=== PATIENT | female | born 1970 | race Hispanic/Latino ===

== ENCOUNTER → 2018-04-26 | Outpatient (CLI) | payer OTHER ==
[~2018-04-26] MED LIST: GADOBENATE DIMEGLUMINE 1 ML IV ONE
[2018-04-26 11:12] LABS: BLOOD UREA NITROGEN 13 mg/dL (7-26); BUN/CREATININE RATIO 16 (6-25); CREATININE, SERUM 0.81 mg/dL (0.57-1.11); EST GLOMERULAR FILTRATION RATE > 60 ML/MIN (60-)
--- NOTE | 2018-04-28 08:35 | Diagnostic Imaging Report ---
MRI abdomen CPT code: 41834 Indication: Anemia/adenoma of liver Technique: Axial T1 nonfat sat in and out of phase, axial T2 fat sat, coronal T2 nonfat sat, axial DWI and ADC MR images of the abdomen were obtained before and after the administration of 18 cc of gadolinium. Axial T1 fat sat GRE dynamic images in precontrast, arterial, venous and delayed phases were obtained. Comparison: None Findings: The majority of the post sequences are motion degraded, including the post gadolinium sequences. Liver: The right lobe measures 21 cm in craniocaudal dimension. There is moderate steatosis. The fat-suppressed T2-weighted sequence demonstrates geographic linear bands of increased T2 signal throughout the right lobe. There is suggestion of a well-defined solid mass in segment 5 abutting the capsule at the gallbladder fossa measuring 13 by 16 mm (series 6, image 28). This is not confirmed on other pulse sequences, however. A subcapsular high T2, low T1 signal lesion in segment 4 measures 1.0 x 0.8 cm. This demonstrates enhancement on post gadolinium sequences without evidence of washout. Gallbladder: Present. No evidence of gallstone or focal mural thickening. Biliary tree: No intrahepatic or extrahepatic biliary ductal dilatation. Pancreas: Normal T1 and T2 signal without mass or ductal dilatation Spleen: Normal size and signal. No mass Adrenal glands: No mass Kidneys: No hydronephrosis. A high T2, low T1 signal unilocular lower pole cyst in the right kidney measures 2.6 cm. No enhancing lesions in either kidney. Lymph nodes: No enlarged abdominal or retroperitoneal lymph nodes. Bowel: The stomach and visualized portions of the small and large bowel are normal in diameter with normal wall thickness. Pelvis: Visualized pelvic structures are unremarkable. No free fluid or fluid collection. Lung bases: Unremarkable. Bones: Normal marrow signal. No focal osseous lesions. IMPRESSION: 1. Compromised examination due to motion artifact. A subcapsular lesion measuring 10 mm in segment 4 may represent a shunt or hemangioma. A lesion adjacent to the gallbladder may or may not be real. Dynamic contrast-enhanced CT dedicated to the liver is recommended for further characterization. 2. Moderate steatosis and hepatomegaly. Linear high T2 signal bands in the right lobe are suggestive of developing cirrhosis, likely secondary to ABRAHAM. Signed by: Dr. Leo Madden MD on 04/28/2018 8:32 AM
== END ==
LOC: MRI 09:52
PROVIDERS: ATTEND Internal Medicine Gastroenterology
DX: D50.0 Iron deficiency anemia secondary to blood loss (chronic) (principal); D13.4 Benign neoplasm of liver; I10 Essential (primary) hypertension; E11.9 Type 2 diabetes mellitus without complications; E66.9 Obesity, unspecified; Z71.3 Dietary counseling and surveillance
CPT/HCPCS: 36415; 74183; 82565; 84520; A9577

== ENCOUNTER → 2019-05-17 | Outpatient (CLI) | payer OTHER ==
[~2019-05-17] MED LIST changes: -GADOBENATE DIMEGLUMINE 1 ML IV ONE; +IOPAMIDOL 370 MG/ML 200 ML INFUS..BTL INJ ONE; +SODIUM CHLORIDE 0.9% 50ML 50 ML ONE
[2019-05-17 13:50] LABS: CREATININE, SERUM 1.07 mg/dL (0.57-1.11)
--- NOTE | 2019-05-18 09:25 | Diagnostic Imaging Report ---
CT of the abdomen, with contrast, 05/17/2019. History: Anemia, liver lesion. Comparison: MRI abdomen 04/26/2018. Technique: Multidetector CT scanning of the abdomen was performed from the level of the lung bases to the iliac crests after intravenous administration of contrast. Scans were obtained during early and delayed phases. Coronal and sagittal multiplanar reformations were obtained. RADIATION DOSE: Total DLP: 866 mGy*cm Dose modulation, iterative reconstruction, and/or weight based adjustment of the mA/kV was utilized to reduce the radiation dose to as low as reasonably achievable. Discussion: LUNG BASES: Small peripheral soft tissue is noted along the left lower lobe. Lungs are clear. ABDOMEN: The liver is enlarged measuring over 20 cm in length. A 3.6 x 3.2 cm heterogeneously enhancing lesion is present in the segment 5 of the liver adjacent to the gallbladder, containing central hypodensity. On delayed phase, the majority of the lesion is isodense to liver with central hypodensity remaining. Remainder of the liver has a diffusely heterogeneous appearance on both early and delayed phases without visible focal lesion. 3 round hypervascular lesions are present within the pancreatic body and tail ranging from 5 to 7 mm in diameter, seen only on the arterial phase. Remainder of pancreas is normal without evidence of cystic lesion or adjacent inflammation. There is no pancreatic ductal dilatation. Retrospectively, these are visible on the prior MRI and are unchanged. A 3 cm cyst is present in the lower pole of the right kidney. The gallbladder, biliary tree, spleen, adrenal glands, and left kidney are normal. The hepatic vein, portal vein, and splenic vein are patent. Portal vein is mildly prominent measuring 15 mm in diameter. The abdominal aorta is within normal limits for size. Evaluation of bowel is limited without oral contrast. Visualized bowel is unremarkable without evidence of dilatation. There is no evidence of adenopathy or free fluid. BONES AND SOFT TISSUES: Degenerative changes are present within the lumbar spine without evidence of lytic or sclerotic lesion. IMPRESSION: 1. Hepatomegaly with diffuse liver heterogeneity and increase in size of segment 5 lesion, which appears to have a central scar suggestive of FNH, but HCC cannot be excluded. Portal vein dilatation is suggestive of portal venous hypertension. Recommend MRI. 2. Subcentimeter pancreatic hypervascular lesions seen only on the arterial phase, indeterminate, but unchanged since prior MRI. No cystic pancreatic lesions. Signed by: Ellis Marie on 05/18/2019 9:20 AM
== END ==
LOC: CT 12:51
PROVIDERS: ATTEND Internal Medicine Gastroenterology
DX: D50.0 Iron deficiency anemia secondary to blood loss (chronic) (principal); K86.2 Cyst of pancreas; A04.8 Other specified bacterial intestinal infections; Z71.3 Dietary counseling and surveillance; I10 Essential (primary) hypertension; E11.9 Type 2 diabetes mellitus without complications; E66.9 Obesity, unspecified; F17.200 Nicotine dependence, unspecified, uncomplicated
CPT/HCPCS: 36415; 74160; 82565; 84520; Q9967

== ENCOUNTER → 2020-05-30 | Outpatient (CLI) | payer OTHER | LOC: US 09:57 | PROVIDERS: ATTEND Internal Medicine Gastroenterology | DX: D50.0 Iron deficiency anemia secondary to blood loss (chronic) (principal); K76.0 Fatty (change of) liver, not elsewhere classified; E11.9 Type 2 diabetes mellitus without complications; I10 Essential (primary) hypertension; Z71.3 Dietary counseling and surveillance; E66.9 Obesity, unspecified | CPT/HCPCS: 76700 ==

== ENCOUNTER → 2020-07-05 | Day surgery (SDC) | payer OTHER ==
[~2020-07-05] MED LIST changes: +AMBIEN10 MG PO; +AMITIZA24 MCG PO; +ATORVASTATIN CA20 MG PO; +BUPROPION HCL75 MG PO; -IOPAMIDOL 370 MG/ML 200 ML INFUS..BTL INJ ONE; +LEVOTHYROXINE50 MCG PO; +LISINOPRIL10 MG PO; +METFORMIN HCL500 MG PO; +ONDANSETRON HCL INJ 2MG/ML 2ML 2 MG/ML VIAL ONE; -SODIUM CHLORIDE 0.9% 50ML 50 ML ONE; +ULTRAM50 MG PO
[2020-07-05 08:00] VITALS: BP 121/83
== END | disposition home or self-care (01) ==
LOC: OR 05:29
PROVIDERS: ATTEND Internal Medicine Gastroenterology
DX: D50.0 Iron deficiency anemia secondary to blood loss (chronic) (principal); K29.50 Unspecified chronic gastritis without bleeding; K44.9 Diaphragmatic hernia without obstruction or gangrene; K31.89 Other diseases of stomach and duodenum; K21.9 Gastro-esophageal reflux disease without esophagitis; Z71.3 Dietary counseling and surveillance; K76.0 Fatty (change of) liver, not elsewhere classified; E11.9 Type 2 diabetes mellitus without complications; I10 Essential (primary) hypertension; E66.9 Obesity, unspecified; E78.5 Hyperlipidemia, unspecified; E03.9 Hypothyroidism, unspecified; M06.9 Rheumatoid arthritis, unspecified; F17.200 Nicotine dependence, unspecified, uncomplicated; Z01.810 Encounter for preprocedural cardiovascular examination; Z01.812 Encounter for preprocedural laboratory examination; Z20.822 Contact with and (suspected) exposure to COVID-19; Z79.84 Long term (current) use of oral hypoglycemic drugs; Z68.32 Body mass index [BMI] 32.0-32.9, adult
CPT/HCPCS: 36415; 43235; 81025; 82948; 93005; J2405; U0002

== ENCOUNTER → 2020-08-17 | Outpatient (CLI) | payer OTHER ==
[~2020-08-17] MED LIST changes: -ONDANSETRON HCL INJ 2MG/ML 2ML 2 MG/ML VIAL ONE
== END ==
LOC: NM 09:24
PROVIDERS: ATTEND Internal Medicine Gastroenterology
DX: D50.0 Iron deficiency anemia secondary to blood loss (chronic) (principal); K31.84 Gastroparesis; E66.9 Obesity, unspecified; E11.9 Type 2 diabetes mellitus without complications; I10 Essential (primary) hypertension; Z71.3 Dietary counseling and surveillance
CPT/HCPCS: 78264; A9541

== ENCOUNTER 2023-11-27 19:07 | Emergency (ER) | payer OTHER ==
[~2023-11-27] VITALS: Ht 157.5 cm; Wt 86.3 kg
[~2023-11-27 19:07] MED LIST changes: +CIPRO500 MG PO; +FERROUS SU220 MG/51; +GABAPENTIN600 MG; +ORPHENADRINE C100 MG PO; +PLAQUENIL200 MG PO; +TIZANIDINE HCL4 MG PO; +VITAMIN D
[2023-11-27 19:57] LABS: BASOPHILS # (AUTO) 0.1 (0.0-0.1); BASOPHILS % 0.4 % (0.0-1.0); EOSINOPHILS # (AUTO) 0.2 (0.0-0.4); EOSINOPHILS % 1.4 % (0.0-6.0); HEMATOCRIT 25.2 % (34.2-44.1); HEMOGLOBIN 7.2 g/dL (12.0-16.0); LYMPHOCYTES # (AUTO) 2.3 (1.0-3.2); LYMPHOCYTES % 16.4 % (18.0-39.1); MEAN CORPUSCULAR HEMOGLOBIN 19.1 pg (28-32); MEAN CORPUSCULAR HGB CONC 28.6 g/dL (31-35); MEAN CORPUSCULAR VOLUME 66.8 fL (81-99); MONOCYTES # (AUTO) 0.8 (0.2-0.8); MONOCYTES % 5.6 % (4.4-11.3); NEUTROPHILS # (AUTO) 10.8 (2.1-6.9); NEUTROPHILS % 75.6 % (38.7-80.0); PLATELET COUNT 657 x10e3/uL (140-360); RED BLOOD COUNT 3.77 x10e6/uL (3.6-5.1); RED CELL DISTRIBUTION WIDTH 19.5 % (11.7-14.4); WHITE BLOOD COUNT 14.23 x10e3/uL (4.8-10.8)
[2023-11-27 20:08] LABS: INR 0.98; PARTIAL THROMBOPLASTIN TIME 24.8 seconds (23.8-35.5); PROTHROMBIN TIME 13.7 seconds (11.9-14.5)
[2023-11-27 20:15] LABS: ALBUMIN 3.8 g/dL (3.5-5.0); ALBUMIN/GLOBULIN RATIO 1.1 (0.8-2.0); ANION GAP 15.2 mmol/L (8-16); BILIRUBIN,TOTAL 0.4 mg/dL (0.2-1.2); CALCIUM 9.1 mg/dL (8.4-10.2); CREATININE, SERUM 1.56 mg/dL (0.57-1.11); POTASSIUM 4.2 mmol/L (3.5-5.1); TOTAL PROTEIN 7.2 g/dL (6.5-8.1)
[2023-11-27] MEDS: SODIUM CHLORIDE 0.9% 1000ML 1,000 ML IV ONE (20:37)
[2023-11-27] MEDS: INSULIN REGULAR, HUMAN 100 UNIT/1 ML SQ ONE (20:40)
[2023-11-27 23:15] VITALS: PULSE 79; RESP 16; TEMP 98.3; O2SAT 100
== END 2023-11-27 23:25 | disposition home or self-care (01) ==
LOC: ER 19:15
DX: E11.65 Type 2 diabetes mellitus with hyperglycemia (principal); D64.9 Anemia, unspecified; R11.0 Nausea; I10 Essential (primary) hypertension; I78.0 Hereditary hemorrhagic telangiectasia; M19.09 Primary osteoarthritis, other specified site
CPT/HCPCS: 36415; 80053; 82948; 85025; 85610; 85730; 86850; 86900; 99283; J7030

== ENCOUNTER → 2024-01-16 | Day surgery (SDC) | payer OTHER ==
[2024-01-08 15:50] LABS: BASOPHILS # (AUTO) 0.1 (0.0-0.1); BASOPHILS % 1.2 % (0.0-1.0); EOSINOPHILS # (AUTO) 0.2 (0.0-0.4); EOSINOPHILS % 1.6 % (0.0-6.0); HEMOGLOBIN 6.1 g/dL (12.0-16.0); LYMPHOCYTES % 21.1 % (18.0-39.1); MEAN CORPUSCULAR HEMOGLOBIN 18.5 pg (28-32); MEAN CORPUSCULAR HGB CONC 27.9 g/dL (31-35); MEAN CORPUSCULAR VOLUME 66.6 fL (81-99); MONOCYTES # (AUTO) 0.5 (0.2-0.8); MONOCYTES % 5.2 % (4.4-11.3); NEUTROPHILS # (AUTO) 6.6 (2.1-6.9); NEUTROPHILS % 70.6 % (38.7-80.0); PLATELET COUNT 375 x10e3/uL (140-360); RED BLOOD COUNT 3.29 x10e6/uL (3.6-5.1); WHITE BLOOD COUNT 9.29 x10e3/uL (4.8-10.8)
[2024-01-08 15:58] LABS: HEMATOCRIT 21.9 % (34.2-44.1)
[2024-01-08 16:03] LABS: INR 1.02; PROTHROMBIN TIME 13.9 seconds (11.9-14.5)
[2024-01-08 16:04] LABS: PARTIAL THROMBOPLASTIN TIME 27.2 seconds (23.8-35.5)
[2024-01-08 16:09] LABS: ANION GAP 14.9 mmol/L (8-16); CALCIUM 9.4 mg/dL (8.4-10.2); CREATININE, SERUM 1.51 mg/dL (0.57-1.11); POTASSIUM 3.9 mmol/L (3.5-5.1)
[~2024-01-16] MED LIST changes: +FENTANYL CITRATE/PF 100MCG/2 ML INJ ONE; +GLUCAGON FOR INJ 1 MG VIAL ONE; +HYDROCODONE; +HYOSCYAMINE SULFATE 0.5 MG/ML INJ ONE; +LIDOCAINE HCL 2% LOCAL INJ 5 ML SDV VIAL INJ ONE; +NOVOLOG100 UNIT/1 SC; +PROPOFOL IV EMULSION 10 MG/ML 50 ML VIAL IV ONE; +TRESIBA FL100 UNIT/1 SQ; +[UNRECOGNIZED DRUG - SUPPLY]
[2024-01-16] MEDS: LACTATED RINGER'S 1,000 ML ONE (14:27)
[2024-01-16 14:38] LABS: BASOPHILS # (AUTO) 0.2 (0.0-0.1); BASOPHILS % 1.6 % (0.0-1.0); EOSINOPHILS # (AUTO) 0.2 (0.0-0.4); EOSINOPHILS % 2.2 % (0.0-6.0); HEMATOCRIT 35.7 % (34.2-44.1); HEMOGLOBIN 10.2 g/dL (12.0-16.0); LYMPHOCYTES # (AUTO) 1.9 (1.0-3.2); LYMPHOCYTES % 19.3 % (18.0-39.1); MEAN CORPUSCULAR HGB CONC 28.6 g/dL (31-35); MEAN CORPUSCULAR VOLUME 73.5 fL (81-99); MONOCYTES # (AUTO) 0.5 (0.2-0.8); MONOCYTES % 5.3 % (4.4-11.3); NEUTROPHILS # (AUTO) 7.1 (2.1-6.9); NEUTROPHILS % 71.2 % (38.7-80.0); PLATELET COUNT 476 x10e3/uL (140-360); RED BLOOD COUNT 4.86 x10e6/uL (3.6-5.1); RED CELL DISTRIBUTION WIDTH 25.7 % (11.7-14.4); WHITE BLOOD COUNT 9.99 x10e3/uL (4.8-10.8)
[2024-01-16 15:47] VITALS: TEMP 97.4
[2024-01-16 16:10] VITALS: BP 130/88; PULSE 78; RESP 18; O2SAT 98
== END | disposition home or self-care (01) ==
LOC: OR 01:40
PROVIDERS: ATTEND Internal Medicine Gastroenterology
DX: K29.50 Unspecified chronic gastritis without bleeding (principal); B96.81 Helicobacter pylori [H. pylori] as the cause of diseases classified elsewhere; D12.2 Benign neoplasm of ascending colon; D12.8 Benign neoplasm of rectum; K62.89 Other specified diseases of anus and rectum; K31.819 Angiodysplasia of stomach and duodenum without bleeding; K31.1 Adult hypertrophic pyloric stenosis; K21.9 Gastro-esophageal reflux disease without esophagitis; K20.90 Esophagitis, unspecified without bleeding; K59.00 Constipation, unspecified; K57.30 Diverticulosis of large intestine without perforation or abscess without bleeding; K64.8 Other hemorrhoids; D64.9 Anemia, unspecified; E10.9 Type 1 diabetes mellitus without complications; I10 Essential (primary) hypertension; E03.9 Hypothyroidism, unspecified; E66.9 Obesity, unspecified; F17.210 Nicotine dependence, cigarettes, uncomplicated; Z01.812 Encounter for preprocedural laboratory examination; Z79.4 Long term (current) use of insulin; Z79.899 Other long term (current) drug therapy; Z68.35 Body mass index [BMI] 35.0-35.9, adult
CPT/HCPCS: 36415 ×2; 43239; 43270; 45380; 45385; 80048; 81025; 82948; 85025 ×2; 85610; 85730; J1610; J1980; J2001; J2470; J2704; J3010; J7121; 45378

== ENCOUNTER 2024-05-31 10:15 | Inpatient (IN) | payer OTHER ==
[2024-05-30 12:16] LABS: BASOPHILS # (AUTO) 0.1 (0.0-0.1); BASOPHILS % 1.8 % (0.0-1.0); EOSINOPHILS # (AUTO) 0.4 (0.0-0.4); EOSINOPHILS % 4.8 % (0.0-6.0); HEMATOCRIT 40.1 % (34.2-44.1); HEMOGLOBIN 11.7 g/dL (12.0-16.0); LYMPHOCYTES # (AUTO) 3.4 (1.0-3.2); LYMPHOCYTES % 42.8 % (18.0-39.1); MEAN CORPUSCULAR HEMOGLOBIN 26.5 pg (28-32); MEAN CORPUSCULAR HGB CONC 29.2 g/dL (31-35); MEAN CORPUSCULAR VOLUME 90.9 fL (81-99); MONOCYTES # (AUTO) 0.5 (0.2-0.8); MONOCYTES % 6.5 % (4.4-11.3); NEUTROPHILS # (AUTO) 3.5 (2.1-6.9); PLATELET COUNT 305 x10e3/uL (140-360); RED BLOOD COUNT 4.41 x10e6/uL (3.6-5.1); RED CELL DISTRIBUTION WIDTH 18.4 % (11.7-14.4); WHITE BLOOD COUNT 7.97 x10e3/uL (4.8-10.8)
[2024-05-30 12:52] LABS: ANION GAP 16.8 mmol/L (8-16); CALCIUM 9.8 mg/dL (8.4-10.2); CREATININE, SERUM 1.19 mg/dL (0.57-1.11); POTASSIUM 3.8 mmol/L (3.5-5.1)
[~2024-05-31] VITALS: Ht 157.5 cm; Wt 87.8 kg
[~2024-05-31 10:15] MED LIST changes: -FENTANYL CITRATE/PF 100MCG/2 ML INJ ONE; +FOLIC ACID0.4 MG PO; -GLUCAGON FOR INJ 1 MG VIAL ONE; -HYOSCYAMINE SULFATE 0.5 MG/ML INJ ONE; -LIDOCAINE HCL 2% LOCAL INJ 5 ML SDV VIAL INJ ONE; +LISINOPRIL20 MG PO; +LYRICA75 MG PO; +MOUNJARO5 MG/0.5 M SQ; +OMEPRAZOLE40 MG PO; -PROPOFOL IV EMULSION 10 MG/ML 50 ML VIAL IV ONE; +SUCRALFATE1 GM PO; +TRANEXAMIC ACID 1,000 MG in SODIUM CHLORIDE 0.9% 100 ML IV PRN; +TRICOR145 MG PO; +TYLENOL #3 PO; -VITAMIN D; +VITAMIN D PO; +VITAMIN D31250 MCG
[2024-05-31] MEDS ORDERED: ROCURONIUM BROMIDE 1 ML IV ONE (10:16)
[2024-05-31] MEDS ORDERED: ONDANSETRON HCL INJ 2MG/ML 2ML 2 MG/ML VIAL ONE (10:16)
[2024-05-31] MEDS ORDERED: LIDOCAINE HCL 2% LOCAL INJ 5 ML SDV VIAL INJ ONE (10:16)
[2024-05-31] MEDS ORDERED: GLYCOPYRROLATE INJ 0.2 MG/ML VIAL ONE ×2 (10:16→14:04)
[2024-05-31] MEDS ORDERED: PROPOFOL IV EMULSION 10 MG/ML 20 ML VIAL ONE ×2 (10:16→11:36)
[2024-05-31] MEDS ORDERED: NEOSTIGMINE 1 MG/ML 10ML VIAL ONE ×2 (10:16→14:04)
[2024-05-31] MEDS ORDERED: FENTANYL CITRATE/PF 100MCG/2 ML INJ ONE (10:20)
[2024-05-31] MEDS ORDERED: MIDAZOLAM HCL 2 MG/2 ML VIAL ONE (11:36)
[2024-05-31] MEDS ORDERED: METHOCARBAMOL 500 MG TAB ONE (11:56)
[2024-05-31] MEDS ORDERED: METOCLOPRAMIDE HCL 10 MG/2ML VIAL ONE (12:56)
[2024-05-31] MEDS: FENTANYL CITRATE/PF 100MCG/2 ML INJ IV ONE ×2 (14:38→14:45)
[2024-05-31] MEDS: ACETAMINOPHEN 1000 MG/100 ML IV ONE (15:05)
[2024-05-31] MEDS: HYDROMORPHONE 1MG/1ML INJ IV ONE (15:10)
[2024-05-31 15:52] VITALS: BP 144/72; PULSE 74; RESP 18; TEMP 97.3; O2SAT 99
[2024-05-31 16:22] VITALS: BP 144/72; PULSE 74; RESP 18; TEMP 97.3; O2SAT 99
[2024-05-31 16:30] VITALS: BP 144/72; PULSE 74; RESP 18; TEMP 97.3; O2SAT 99
[2024-05-31] MEDS: LACTATED RINGER'S 1,000 ML ONE (17:14)
[2024-05-31] MEDS: CEFAZOLIN SODIUM 2 GM ONE (17:14)
[2024-05-31] MEDS: DEXTROSE 5% 250ML 250 ML IV ONE (17:15)
[2024-05-31] MEDS: FENTANYL CITRATE/PF 100MCG/2 ML INJ ONE (17:16)
[2024-05-31] MEDS: ACETAMINOPHEN 325 MG TAB ONE (17:16)
[2024-05-31] MEDS: ACETAMINOPHEN 1000 MG/100 ML 100 ML IV ONE (17:16)
[2024-05-31] MEDS: CELECOXIB 200 MG CAP ONE (17:16)
[2024-05-31] MEDS: HYDROMORPHONE 1MG/1ML INJ ONE (17:17)
[2024-05-31] MEDS: HYDROCODONE/APAP 7.5MG-325MG 1 EA TAB PO PRN (19:05)
[2024-05-31 20:00] VITALS: BP 133/97; PULSE 89; RESP 18; TEMP 97.9; O2SAT 100
[2024-05-31 21:00] VITALS: BP 133/97; PULSE 89; RESP 18; TEMP 97.9; O2SAT 100
[2024-05-31] MEDS: KETOROLAC TROMETHAMINE 30 MG/ML VIAL IV PRN (21:52)
[2024-05-31] MEDS: ASPIRIN 81 MG CHEW TAB PO SCH (23:37)
[2024-06-01] VITALS (8 sets, daily range): BP systolic 119–155; BP diastolic 76–87; PULSE 67–101; RESP 18–20; TEMP 98–98.2; O2SAT 98–100
[2024-06-01] MEDS ORDERED: DEXTROSE 50% SYRINGE 50 ML IV PRN ×2
[2024-06-01] MEDS ORDERED: LIDOCAINE 4% PATCH TP PRN
[2024-06-01] MEDS ORDERED: ACETAMINOPHEN 325 MG TAB PO PRN
[2024-06-01] MEDS ORDERED: DOCUSATE SODIUM 100 MG CAP PO PRN
[2024-06-01] MEDS ORDERED: ALBUTEROL/IPRATROPIUM 3 ML NEB NEB PRN
[2024-06-01] MEDS ORDERED: SIMETHICONE 80 MG CHEW PO PRN
[2024-06-01] MEDS ORDERED: ONDANSETRON HCL INJ 2MG/ML 2ML 2 MG/ML VIAL IV PRN
[2024-06-01] MEDS ORDERED: POTASSIUM CHLORIDE 20 MEQ TAB CR PO PRN
[2024-06-01] MEDS ORDERED: HYDRALAZINE HCL 20 MG/ML VIAL IV PRN
[2024-06-01] MEDS ORDERED: BUPROPION XL150 MG PO (00:47)
[2024-06-01] MEDS: PREGABALIN 75 MG CAP PO SCH (01:00)
[2024-06-01] MEDS: DIPHENHYDRAMINE HCL 25 MG CAP PO PRN (01:00)
[2024-06-01 05:48] LABS: HEMATOCRIT 25.2 % (34.2-44.1); HEMOGLOBIN 8.1 g/dL (12.0-16.0)
[2024-06-01 06:21] LABS: ALBUMIN 3.5 g/dL (3.5-5.0); ALBUMIN/GLOBULIN RATIO 1.3 (0.8-2.0); ANION GAP 14.9 mmol/L (8-16); BILIRUBIN,TOTAL 0.3 mg/dL (0.2-1.2); CALCIUM 8.9 mg/dL (8.4-10.2); CREATININE, SERUM 1.35 mg/dL (0.57-1.11); POTASSIUM 3.9 mmol/L (3.5-5.1); TOTAL PROTEIN 6.1 g/dL (6.5-8.1)
[2024-06-01] MEDS: LEVOTHYROXINE SODIUM 50 MCG TAB PO SCH (06:31)
[2024-06-01] MEDS: INSULIN LISPRO 100 UNIT/1 ML 3ML VIAL SQ SCH (07:30)
[2024-06-01] MEDS ORDERED: BUPROPION HCL 75 MG TAB PO SCH (09:00)
[2024-06-01] MEDS: FENOFIBRATE 145 MG TAB PO SCH (09:10)
[2024-06-01] MEDS: HYDROXYCHLOROQUINE SULFATE 200 MG TAB PO SCH (09:10)
[2024-06-01] MEDS: BUPROPION HCL 150 MG TABCR PO SCH (09:10)
[2024-06-01] MEDS: SUCRALFATE 1 GM TAB PO SCH (09:10)
[2024-06-01] MEDS: PANTOPRAZOLE SOD 40 MG TABEC PO SCH ×2 (09:11→09:12)
[2024-06-01] MEDS: DOCUSATE SODIUM 100 MG CAP PO SCH (09:11)
[2024-06-01] MEDS: LISINOPRIL 20 MG TAB PO SCH (09:11)
[2024-06-01] MEDS: ENOXAPARIN SOD INJ 40 MG/0.4 ML SYR SC SCH (17:58)
[2024-06-02] VITALS (10 sets, daily range): BP systolic 127–146; BP diastolic 62–99; PULSE 74–97; RESP 16–20; TEMP 97.6–98.5; O2SAT 95–100
[2024-06-02 12:01] LABS: HEMOGLOBIN 7.5 g/dL (12.0-16.0)
[2024-06-03] VITALS (10 sets, daily range): BP systolic 113–151; BP diastolic 54–81; PULSE 82–100; RESP 16–18; TEMP 97.8–98.4; O2SAT 94–100
[2024-06-03 07:12] LABS: HEMATOCRIT 23.2 % (34.2-44.1)
[2024-06-03 07:18] LABS: HEMOGLOBIN 6.8 g/dL (12.0-16.0)
[2024-06-03] MEDS: SODIUM CHLORIDE 0.9% 250ML 250 ML IV ONE (13:05)
[2024-06-04] VITALS: BP 141/77; PULSE 88; RESP 18; TEMP 98; O2SAT 100
[2024-06-04 04:00] VITALS: BP 156/88; PULSE 100; RESP 18; TEMP 98.7; O2SAT 100
[2024-06-04 06:15] LABS: BASOPHILS # (AUTO) 0.1 (0.0-0.1); BASOPHILS % 0.9 % (0.0-1.0); EOSINOPHILS # (AUTO) 0.8 (0.0-0.4); EOSINOPHILS % 8.6 % (0.0-6.0); HEMATOCRIT 30.1 % (34.2-44.1); HEMOGLOBIN 9.1 g/dL (12.0-16.0); LYMPHOCYTES % 31.9 % (18.0-39.1); MEAN CORPUSCULAR HEMOGLOBIN 27.4 pg (28-32); MEAN CORPUSCULAR HGB CONC 30.2 g/dL (31-35); MEAN CORPUSCULAR VOLUME 90.7 fL (81-99); MONOCYTES # (AUTO) 0.6 (0.2-0.8); MONOCYTES % 6.1 % (4.4-11.3); NEUTROPHILS # (AUTO) 4.9 (2.1-6.9); NEUTROPHILS % 51.5 % (38.7-80.0); PLATELET COUNT 204 x10e3/uL (140-360); RED BLOOD COUNT 3.32 x10e6/uL (3.6-5.1); RED CELL DISTRIBUTION WIDTH 17.2 % (11.7-14.4)
[2024-06-04 06:40] LABS: ANION GAP 12.9 mmol/L (8-16); CALCIUM 8.4 mg/dL (8.4-10.2); CREATININE, SERUM 1.24 mg/dL (0.57-1.11); POTASSIUM 3.9 mmol/L (3.5-5.1)
[2024-06-04 07:38] VITALS: PULSE 82; RESP 18; O2SAT 98
[2024-06-04 08:16] VITALS: BP 127/71; PULSE 86; RESP 19; TEMP 98.6; O2SAT 100
[2024-06-04 12:04] VITALS: BP 141/74; PULSE 84; RESP 19; TEMP 97.7; O2SAT 100
[2024-06-04 12:45] VITALS: PULSE 86; RESP 18; O2SAT 97
[2024-06-04] MEDS: BENZONATATE 100 MG CAP PO PRN (15:17)
[2024-06-04] MEDS: HEPARIN 500 UNITS/5ML MDV INJ ONE (15:58)
== END 2024-06-04 16:00 | disposition home or self-care (01) | DRG 470 ==
LOC: OR 10:15 → PACU V 14:20 → MED/SURG2 15:45 → OBSVTOIN 06-02 14:05
PROVIDERS: ADMIT Orthopaedic Surgery; ATTEND Orthopaedic Surgery
PROC: 0SRD0J9 Replacement of Left Knee Joint with Synthetic Substitute, Cemented, Open Approach (ICD-10-PCS; principal; 2024-05-31 12:25)
PROC: 30233N1 Transfusion of Nonautologous Red Blood Cells into Peripheral Vein, Percutaneous Approach (ICD-10-PCS; 2024-06-03)
DX: M17.12 Unilateral primary osteoarthritis, left knee (principal); D62 Acute posthemorrhagic anemia; Z96.651 Presence of right artificial knee joint; I10 Essential (primary) hypertension; E78.5 Hyperlipidemia, unspecified; E11.42 Type 2 diabetes mellitus with diabetic polyneuropathy; Z79.4 Long term (current) use of insulin; Z79.84 Long term (current) use of oral hypoglycemic drugs; F41.8 Other specified anxiety disorders; E03.9 Hypothyroidism, unspecified; G47.33 Obstructive sleep apnea (adult) (pediatric); M06.9 Rheumatoid arthritis, unspecified; Z79.899 Other long term (current) drug therapy
CPT/HCPCS: 36415; 80048; 80053; 81025; 82948; 85014; 85018; 85025; 86850; 86900; 86920; 93005; 94799; 96372; C1776; G0378; J0690; J1171; J1650; J1885; J2003; J2250; J2405; J2710; J2765; J7050; P9016